=== PATIENT | male | born 1995 | race Caucasian/White ===

== ENCOUNTER 2018-01-13 01:40 | Emergency (ER) | payer OTHER, MEDICAID, SELFPAY ==
--- NOTE | 2018-01-13 05:27 | ED.GENADULT ---
HPI - General Adult General Stated complaint: CUT LEFT THUMB History of Present Illness HPI narrative: Patient never seen or evaluated by me. Discharge Plan Departure Patient Disposition: Home, Self-Care Discharge Date/Time: 01/13/18 01:57
== END 2018-01-13 01:57 | disposition home or self-care (01) ==
PROVIDERS: Emergency Provider Emergency Medicine; PCP Family Medicine